=== PATIENT | female | born 1940 | race Caucasian/White ===

== ENCOUNTER 2017-01-08 16:53 | Inpatient (IN) | payer MEDICARE, MEDICAID ==
[~2017-01-08] VITALS: Ht 157.5 cm; Wt 54.1 kg
--- NOTE | 2017-01-08 17:10 | NUR ---
PATIENT IS AWAKE AND ALERT. PLACED ON A MONITOR.
[2017-01-08] MEDS ORDERED: BENZ1LOZ58 MM (18:05)
[2017-01-08] MEDS ORDERED: SERT100T PO (18:05)
[2017-01-08] MEDS ORDERED: ACET-2154 PO ×2 (18:05)
[2017-01-08] MEDS ORDERED: ACET-73 PO (18:05)
[2017-01-08] MEDS ORDERED: FURO40TA5 PO (18:05)
[2017-01-08] MEDS ORDERED: OMEP20TA5 PO (18:05)
[2017-01-08] MEDS ORDERED: MEMA10TA PO (18:05)
[2017-01-08] MEDS ORDERED: DONE5TAB7 PO (18:05)
[2017-01-08] MEDS ORDERED: LEVO75TA7 PO (18:05)
[2017-01-08] MEDS ORDERED: CLON0.252 PO (18:05)
[2017-01-08] MEDS ORDERED: POTA10TA10 PO (18:05)
[2017-01-08] MEDS ORDERED: FERR325T28 PO (18:05)
[2017-01-08] MEDS ORDERED: CHOL400C8 PO (18:06)
[2017-01-08 18:09] LABS: BASOPHILS % (AUTO) 0.3 % (0.0-2.0); EOSINOPHILS # (AUTO) 0.2 K/uL (0.0-0.7); EOSINOPHILS % (AUTO) 1.5 % (0.0-7.0); HEMATOCRIT 39.5 % (37-47); LYMPHOCYTES # (AUTO) 1.2 K/UL (0.8-4.8); LYMPHOCYTES % (AUTO) 11.7 % (20.5-51.5); MEAN CORPUSCULAR HEMOGLOBIN 30.6 UUG (27.0-31.0); MEAN CORPUSCULAR HGB CONC 33 g/dL (32.0-37.0); MONOCYTES # (AUTO) 0.8 K/UL (0.1-1.30); NEUTROPHILS # (AUTO) 7.9 K/UL (1.8-8.9); NEUTROPHILS % (AUTO) 78.5 % (38.5-71.5); PLATELET COUNT (AUTO) 155 K/UL (150-450); RED BLOOD CELL COUNT(AUTO) 4.24 MIL/UL (4.2-5.4); WHITE BLOOD COUNT (AUTO) 10.1 K/UL (4.0-11.2)
[2017-01-08 18:19] LABS: CARBON DIOXIDE 27 mmol/L (21-32); CHLORIDE 103 mmol/L (98-107); CREATININE 0.5 mg/dL (0.6-1.3); GLUCOSE 102 mg/dL (74-106); POTASSIUM 4.2 mmol/L (3.5-5.1); UREA NITROGEN, BLOOD 16 mg/dL (7-18)
--- NOTE | 2017-01-08 18:22 | NUR ---
URINE SENT TO LAB. IV PLACED, LABS PENDING. PT IS AWAKE AND ALERT WITH NO COMPLAINTS.
[2017-01-08 18:29] LABS: ALANINE AMINOTRANSFERASE 8 U/L (14-59); ALKALINE PHOSPHATASE 79 U/L (50-136); ASPARTATE AMINOTRANSFERASE 16 U/L (15-37); BILIRUBIN,DIRECT 0.1 mg/dL (0.0-0.2); BILIRUBIN,TOTAL 0.4 mg/dL (0.2-1.0); TOTAL PROTEIN, SERUM 7.6 g/dL (6.4-8.2)
[2017-01-08 19:48] LABS: *BILIRUBIN,URIN NEGATIVE (NEGATIVE); *BLOOD, URINE 1+ (NEGATIVE); *CLARITY,URINE CLEAR (CLEAR); *COLOR,URINE YELLOW (YELLOW); *KETONES,URINE NEGATIVE (NEGATIVE); *PROTEIN,URINE NEGATIVE (NEGATIVE); *UROBILINOGEN,URINE 0.2 E.U./dl (NORMAL); LEUKOCYTE ESTERASE ,URINE 3+ (NEGATIVE); NITRITE, URINE POSITIVE (NEGATIVE); UGLUCOSE NEGATIVE (NEGATIVE)
[2017-01-08 19:54] LABS: WBC,URINE 20-50 /HPF (0-3)
[2017-01-08 19:55] LABS: BACTERIA,URINE 3 /HPF (NONE SEEN); SQUAMOUS EPITHELIAL CELL,UR MODERATE /HPF (NONE SEEN)
[2017-01-08] MEDS ORDERED: CEFTRIAXONE 1 G in IV DEXTROSE 5% 50 ML IV ONE (20:00)
--- NOTE | 2017-01-08 20:30 | NUR ---
Patient pulled out IV line. Catheter intact and site benign. Pressure and 4x4 gauze applied to site. No bleeding noted.
[2017-01-08] MEDS ORDERED: CEFTRIAXONE 1 G VIAL ONE (20:31)
--- NOTE | 2017-01-08 21:09 | NUR ---
Pt. admitted to M/S, under care of Dr. Jurado. Belongs List completed
--- NOTE | 2017-01-08 21:15 | NUR ---
RECEIVED FROM ER VIA RADHA, HERED TO ROOM AND PLACED COMFORTABLY ON BED. ALERT TO SELF ONLY. SHE IS ABLE TO MAKE NEEDS KNOWN BUT SHE IS CONFUSED. UNABLE TO PROVIDE HX. BODY ASSESSMENT DONE. SKIN INTACT. SAFETY INITIATED. NEEDS ATTENDED. NO SIGNS OF ACUTE DISTRESS NOTED. WILL REVIEW MEDICATIONS ORDERED. WILL ADMINISTER MEDICATIONS ORDERED. WILL CONTINUE TO MONITOR.
[2017-01-08] MEDS ORDERED: MAGNESIUM HYDROXIDE 30 ML LIQUID UDC PO PRN (22:00)
[2017-01-08] MEDS ORDERED: ACETAMINOPHEN 325 MG TABLET PO PRN (22:00)
[2017-01-08] MEDS ORDERED: MORPHINE SULFATE 2 MG/1 ML DISP.SYRIN IV PRN (22:00)
[2017-01-08] MEDS: CEFTRIAXONE 1 G in IV DEXTROSE 5% 50 ML IV SCH (22:00)
[2017-01-08] MEDS: IV 1/2NS 1000 ML 1,000 ML IV PRN (22:18)
--- NOTE | 2017-01-08 22:44 | NUR ---
DR. YAÑEZ AT BEDSIDE.
[2017-01-09 07:11] LABS: THYROID STIMULATING HORMONE 4.334 mIU/mL (0.358-3.740)
[2017-01-09 07:15] LABS: BASOPHILS % (AUTO) 0.2 % (0.0-2.0); EOSINOPHILS # (AUTO) 0.3 K/uL (0.0-0.7); EOSINOPHILS % (AUTO) 2.8 % (0.0-7.0); HEMATOCRIT 37.2 % (37-47); HEMOGLOBIN 12.3 G/DL (12.0-16.0); LYMPHOCYTES # (AUTO) 1.6 K/UL (0.8-4.8); LYMPHOCYTES % (AUTO) 17.8 % (20.5-51.5); MEAN CORPUSCULAR HGB CONC 33 g/dL (32.0-37.0); MEAN CORPUSCULAR VOLUME 93.7 FL (81.0-99.0); MONOCYTES # (AUTO) 0.9 K/UL (0.1-1.30); MONOCYTES % (AUTO) 9.7 % (0.0-11.0); NEUTROPHILS # (AUTO) 6.2 K/UL (1.8-8.9); NEUTROPHILS % (AUTO) 69.5 % (38.5-71.5); PLATELET COUNT (AUTO) 147 K/UL (150-450); RED BLOOD CELL COUNT(AUTO) 3.97 MIL/UL (4.2-5.4); WHITE BLOOD COUNT (AUTO) 9.1 K/UL (4.0-11.2)
--- NOTE | 2017-01-09 07:25 | NUR ---
PT SLEEPING IN BED, AWAKENS TO TOUCH. PT NON VERBAL HOWEVER SHAKES HEAD YES OR NO TO MAKE NEEDS KNOWN. IN NO ACUTE DISTRESS, IV INTACT AND PATENT, INFUSING WELL. ALL SAFETY AND COMFORT MEASURES ATTENDED TO, CALL LIGHT IN REACH
--- NOTE | 2017-01-09 07:35 | NUR ---
PATIENT SLEPT INTERMITTENTLY T/O THE NIGHT. ALL SAFETY AND COMFORT MEASURES MAINTAINED T/O SHIFT. V/S AFEBRILE. NO CHANGES NOTED T/O SHIFT. ADMISSION PROTOCOL FOLLOWED.
[2017-01-09] MEDS ORDERED: CLONAZEPAM 0.5 MG TABLET PO PRN (07:45)
[2017-01-09] MEDS: SERTRALINE HCL 100 MG TABLET PO SCH (08:18)
[2017-01-09] MEDS: CHOLECALCIFEROL 400 UNITS TABLET PO SCH (08:18)
[2017-01-09] MEDS: LEVOTHYROXINE SODIUM 75 MCG TABLET PO SCH (08:18)
[2017-01-09] MEDS: FERROUS SULFATE 325 MG TABEC PO SCH (08:18)
[2017-01-09] MEDS: DONEPEZIL 5 MG TABLET PO SCH ×2 (08:18→16:27)
[2017-01-09] MEDS: PANTOPRAZOLE SODIUM 40 MG TABLET.DR PO SCH (08:18)
[2017-01-09] MEDS: MEMANTINE HCL 10 MG TABLET PO SCH ×2 (08:18→16:27)
[2017-01-09 08:19] LABS: ALANINE AMINOTRANSFERASE 10 U/L (14-59); ALKALINE PHOSPHATASE 76 U/L (50-136); ASPARTATE AMINOTRANSFERASE 14 U/L (15-37); BILIRUBIN,TOTAL 0.4 mg/dL (0.2-1.0); CARBON DIOXIDE 26 mmol/L (21-32); CHLORIDE 102 mmol/L (98-107); CHOLESTEROL 162 mg/dL (<200); CREATININE 0.5 mg/dL (0.6-1.3); GLUCOSE 78 mg/dL (74-106); HDL CHOLESTEROL 41 mg/dL (40-60); MAGNESIUM 1.8 mg/dL (1.8-2.4); PHOSPHOROUS 3.5 mg/dL (2.5-4.9); POTASSIUM 3.6 mmol/L (3.5-5.1); TOTAL PROTEIN, SERUM 7.1 g/dL (6.4-8.2); TRIGLYCERIDES 104 MG/DL (30-150); UREA NITROGEN, BLOOD 14 mg/dL (7-18)
[2017-01-09] MEDS ORDERED: CLONAZEPAM 0.25 MG PO SCH (09:00)
[2017-01-09] MEDS: IV 1/2NS 1000 ML 1,000 ML IV PRN (11:32)
[2017-01-09 11:48] VITALS: BP 119/64
[2017-01-09 15:14] VITALS: BP 98/64
--- NOTE | 2017-01-09 19:30 | NUR ---
RCVD PATIENT LAYING IN BED COMFORTABLY. NO SIGNS OF DISTRESS NOTED. ABLE TO ANSWER OPEN ENDED QUESTIONS. DVT PUMPS ON BILATERAL LEGS. ATE 25% OF HER DINNER. SAFETY INITIATED. CALL LIGHT WITHIN REACH. WILL CONTINUE TO MONITOR.
[2017-01-09 20:00] VITALS: BP 115/72
[2017-01-09] MEDS: CEFTRIAXONE 1 G in IV DEXTROSE 5% 50 ML IV SCH (21:13)
[2017-01-09] MEDS: DOCUSATE SODIUM 100 MG CAPSULE PO SCH (21:13)
[2017-01-10] MEDS: IV 1/2NS 1000 ML 1,000 ML IV PRN ×2 (02:12→14:16)
[2017-01-10 04:55] VITALS: BP 98/60
[2017-01-10] MEDS: PANTOPRAZOLE SODIUM 40 MG TABLET.DR PO SCH (06:14)
[2017-01-10] MEDS: LEVOTHYROXINE SODIUM 75 MCG TABLET PO SCH (06:14)
[2017-01-10] MEDS ORDERED: Z GUARD REMEDY PASTE 57 GM TUBE TOP PRN (06:45)
[2017-01-10 07:12] LABS: BASOPHILS % (AUTO) 0.2 % (0.0-2.0); EOSINOPHILS # (AUTO) 0.2 K/uL (0.0-0.7); EOSINOPHILS % (AUTO) 2.1 % (0.0-7.0); HEMATOCRIT 37.8 % (37-47); HEMOGLOBIN 12.5 G/DL (12.0-16.0); LYMPHOCYTES # (AUTO) 1.3 K/UL (0.8-4.8); LYMPHOCYTES % (AUTO) 14.7 % (20.5-51.5); MEAN CORPUSCULAR HEMOGLOBIN 30.7 UUG (27.0-31.0); MEAN CORPUSCULAR HGB CONC 33 g/dL (32.0-37.0); MEAN CORPUSCULAR VOLUME 92.8 FL (81.0-99.0); MONOCYTES # (AUTO) 0.8 K/UL (0.1-1.30); MONOCYTES % (AUTO) 9.6 % (0.0-11.0); NEUTROPHILS # (AUTO) 6.2 K/UL (1.8-8.9); NEUTROPHILS % (AUTO) 73.4 % (38.5-71.5); PLATELET COUNT (AUTO) 139 K/UL (150-450); RED BLOOD CELL COUNT(AUTO) 4.07 MIL/UL (4.2-5.4); WHITE BLOOD COUNT (AUTO) 8.5 K/UL (4.0-11.2)
--- NOTE | 2017-01-10 07:21 | NUR ---
PATIENT SLEPT INTERMITTENTLY T/O SHIFT. NO SIGNS OF DISTRESS NOTED. ALL MEDICATIONS GIVEN ORDERED. TURN AND REPOSITIONED Q2H. REDNESS IN SACRAL AREA. DOCUMENTED AND PHOTOS DONE. LEFT EYE REDNESS AND CRUSTING. ENDORSED TO AM NURSE. ALL NEEDS MET. CALL LIGHT WITHIN REACH.
[2017-01-10 07:29] LABS: ALANINE AMINOTRANSFERASE 8 U/L (14-59); ALKALINE PHOSPHATASE 79 U/L (50-136); ASPARTATE AMINOTRANSFERASE 13 U/L (15-37); BILIRUBIN,TOTAL 0.3 mg/dL (0.2-1.0); CARBON DIOXIDE 28 mmol/L (21-32); CHLORIDE 102 mmol/L (98-107); CREATININE 0.5 mg/dL (0.6-1.3); GLUCOSE 77 mg/dL (74-106); PHOSPHOROUS 3.2 mg/dL (2.5-4.9); POTASSIUM 3.3 mmol/L (3.5-5.1); UREA NITROGEN, BLOOD 8 mg/dL (7-18)
[2017-01-10 07:56] LABS: MAGNESIUM 1.7 mg/dL (1.8-2.4)
--- NOTE | 2017-01-10 08:50 | NUR ---
RECEIVED REPORT FROM CHARGE NURSE. PATIENT IN BED, SAFETY CHECK, BED IN LOW POSITION, SIDE RAILS UPX2.
[2017-01-10] MEDS: SERTRALINE HCL 100 MG TABLET PO SCH (09:24)
[2017-01-10] MEDS: DONEPEZIL 5 MG TABLET PO SCH ×2 (09:24→17:18)
[2017-01-10] MEDS: MEMANTINE HCL 10 MG TABLET PO SCH ×2 (09:24→17:18)
[2017-01-10] MEDS: FERROUS SULFATE 325 MG TABEC PO SCH (09:24)
[2017-01-10] MEDS: CHOLECALCIFEROL 400 UNITS TABLET PO SCH (09:24)
[2017-01-10] MEDS ORDERED: POTASSIUM CHLORIDE 20 MEQ TAB.PRT.SR PO ONE (11:30)
[2017-01-10 11:50] VITALS: BP 133/62
[2017-01-10 15:31] VITALS: BP 122/73
[2017-01-10] MEDS: MAGNESIUM SULFATE/D5W 100 ML IV SCH ×2 (15:53→15:54)
--- NOTE | 2017-01-10 18:26 | NUR ---
PATIENT SLEPT MOST OF SHIFT, NO SOB NO CHEST PAIN, KEPT CLEAN AND COMFORTABLE. PATIENT IS EATING VERY LITTLE DURING MEALS.
[2017-01-10 19:00] VITALS: BP 106/56
--- NOTE | 2017-01-10 19:35 | NUR ---
PT RECEIVED IN BED, AWAKE AND COMFORTABLE. A/OX2. ABLE TO MAKE NEEDS KNOWN. V/S STABLE. NO SIGNS OF ACUTE DISTRESS. NO COMPLAINTS OF PAIN AT THIS TIME. IVF INFUSING. SAFETY MEASURES IMPLEMENTED. FALL PRECAUTIONS IN PLACE. CALL LIGHT WITHIN REACH. WILL CONTINUE TO MONITOR.
[2017-01-10] MEDS: DOCUSATE SODIUM 100 MG CAPSULE PO SCH (21:10)
[2017-01-10] MEDS: CEFTRIAXONE 1 G in IV DEXTROSE 5% 50 ML IV SCH (21:11)
[2017-01-11 04:00] VITALS: BP 112/59
--- NOTE | 2017-01-11 06:00 | NUR ---
END OF SHIFT NOTES. PT SLEPT WELL THROUGHOUT SHIFT. V/S STABLE. NO SIGNS OF ACUTE DISTRESS. NO COMPLAINTS OF PAIN. IVF INFUSING. NEEDS ATTENDED. SAFETY MAINTAINED. CALL LIGHT WITHIN REACH.
[2017-01-11 07:10] LABS: HEMOGLOBIN 12.8 G/DL (12.0-16.0); RED BLOOD CELL COUNT(AUTO) 4.11 MIL/UL (4.2-5.4)
[2017-01-11 07:11] LABS: BASOPHILS % (AUTO) 0.1 % (0.0-2.0); EOSINOPHILS # (AUTO) 0.2 K/uL (0.0-0.7); EOSINOPHILS % (AUTO) 2.2 % (0.0-7.0); HEMATOCRIT 37.9 % (37-47); LYMPHOCYTES # (AUTO) 1.2 K/UL (0.8-4.8); LYMPHOCYTES % (AUTO) 14.8 % (20.5-51.5); MEAN CORPUSCULAR HEMOGLOBIN 31.2 UUG (27.0-31.0); MEAN CORPUSCULAR HGB CONC 34 g/dL (32.0-37.0); MEAN CORPUSCULAR VOLUME 92.2 FL (81.0-99.0); MONOCYTES # (AUTO) 0.7 K/UL (0.1-1.30); MONOCYTES % (AUTO) 8.8 % (0.0-11.0); NEUTROPHILS # (AUTO) 5.9 K/UL (1.8-8.9); NEUTROPHILS % (AUTO) 74.1 % (38.5-71.5); PLATELET COUNT (AUTO) 152 K/UL (150-450)
[2017-01-11] MEDS: LEVOTHYROXINE SODIUM 75 MCG TABLET PO SCH (07:12)
[2017-01-11 07:13] LABS: CARBON DIOXIDE 30 mmol/L (21-32); CHLORIDE 102 mmol/L (98-107); CREATININE 0.4 mg/dL (0.6-1.3); GLUCOSE 84 mg/dL (74-106); POTASSIUM 3.9 mmol/L (3.5-5.1); UREA NITROGEN, BLOOD 7 mg/dL (7-18)
[2017-01-11] MEDS: PANTOPRAZOLE SODIUM 40 MG TABLET.DR PO SCH (07:13)
[2017-01-11] MEDS: IV 1/2NS 1000 ML 1,000 ML IV PRN (07:57)
[2017-01-11] MEDS: DONEPEZIL 5 MG TABLET PO SCH ×2 (08:30→17:17)
[2017-01-11] MEDS: FERROUS SULFATE 325 MG TABEC PO SCH (08:30)
[2017-01-11] MEDS: CHOLECALCIFEROL 400 UNITS TABLET PO SCH (08:30)
[2017-01-11] MEDS: SERTRALINE HCL 100 MG TABLET PO SCH (08:30)
[2017-01-11] MEDS: MEMANTINE HCL 10 MG TABLET PO SCH ×2 (08:30→17:17)
[2017-01-11 11:28] VITALS: BP 134/73
[2017-01-11] MEDS ORDERED: ACID1TAB4 PO (14:07)
[2017-01-11] MEDS ORDERED: ACET325T53 PO (14:07)
[2017-01-11] MEDS ORDERED: MENT71OI TOP (14:07)
[2017-01-11] MEDS ORDERED: FURO-152 PO (14:07)
[2017-01-11] MEDS ORDERED: DOCU100C36 PO (14:07)
[2017-01-11] MEDS ORDERED: SULF1TAB48 PO (14:07)
[2017-01-11 15:09] VITALS: BP_SYST 108; BP_SYST 134; BP_DIAS 62; BP_DIAS 73
--- NOTE | 2017-01-11 17:20 | NUR ---
The patient will be discharged today back to [facility] [ ; [address] [place] [address]] via [facility]. Left a message to her daughter, Maru [ ], about her discharge. Camelia from [facility] confirmed that they will re-admit the patient today and that she is their long-term resident. Her RN, Minal, is aware of her discharge plan and will call the facility for the report.
--- NOTE | 2017-01-11 18:00 | NUR ---
PATIENT WAS [facility]SP[facility]. PATIENTS VITALS WNL, NO EVIDENCE OF DISTRESS NOTED.
== END 2017-01-11 18:30 | DRG 871 ==
LOC: ER 17:02 → MED 21:03
PROVIDERS: ADMIT Internal Medicine; ATTEND Internal Medicine
DX: A41.9 Sepsis, unspecified organism (principal); G92 Toxic encephalopathy; E43 Unspecified severe protein-calorie malnutrition; N39.0 Urinary tract infection, site not specified; D68.59 Other primary thrombophilia; R65.20 Severe sepsis without septic shock; B96.20 Unspecified Escherichia coli [E. coli] as the cause of diseases classified elsewhere; Z66 Do not resuscitate; K21.9 Gastro-esophageal reflux disease without esophagitis; Z86.718 Personal history of other venous thrombosis and embolism; Z88.0 Allergy status to penicillin; Z88.6 Allergy status to analgesic agent; Z88.1 Allergy status to other antibiotic agents; Z91.010 Allergy to peanuts; Z86.711 Personal history of pulmonary embolism; Z68.21 Body mass index [BMI] 21.0-21.9, adult; Z74.09 Other reduced mobility; F03.90 Unspecified dementia, unspecified severity, without behavioral disturbance, psychotic disturbance, mood disturbance, and anxiety; E03.9 Hypothyroidism, unspecified; E87.6 Hypokalemia; E83.42 Hypomagnesemia; F32.9 Major depressive disorder, single episode, unspecified; F41.9 Anxiety disorder, unspecified; K44.9 Diaphragmatic hernia without obstruction or gangrene; Z87.891 Personal history of nicotine dependence; M81.0 Age-related osteoporosis without current pathological fracture; I51.89 Other ill-defined heart diseases; I70.0 Atherosclerosis of aorta
CPT/HCPCS: 36415; 70030-TC; 70450; 71010; 83605; 83735; 84100; 84443; 85025; 85730; 87040; 87077; 87086; 92610; 93005; 93307; 97161; J0696; J3475; J3490; J7060

== ENCOUNTER 2017-03-28 19:44 | Inpatient (IN) | payer MEDICARE, MEDICAID ==
[~2017-03-28] VITALS: Ht 165.1 cm; Wt 55.0 kg
[~2017-03-28 19:44] MED LIST: ACET325T53 PO; ACID1TAB4 PO; CHOL400C8 PO; CLON0.252 PO; DOCU100C36 PO; DONE5TAB7 PO; FERR325T28 PO; FURO-152 PO; LEVO75TA7 PO; MEMA10TA PO; MENT71OI TOP; OMEP20TA5 PO; SERT100T PO; SULF1TAB48 PO
[2017-03-28] MEDS ORDERED: ATOR10TA PO (20:01)
[2017-03-28] MEDS ORDERED: CHOL10002 PO (20:01)
[2017-03-28 20:44] LABS: BASOPHILS % (AUTO) 0.2 % (0.0-2.0); EOSINOPHILS # (AUTO) 0.1 K/uL (0.0-0.7); HEMATOCRIT 37.4 % (37-47); HEMOGLOBIN 12.6 G/DL (12.0-16.0); LYMPHOCYTES # (AUTO) 1.6 K/UL (0.8-4.8); LYMPHOCYTES % (AUTO) 15.2 % (20.5-51.5); MEAN CORPUSCULAR HEMOGLOBIN 31.5 UUG (27.0-31.0); MEAN CORPUSCULAR HGB CONC 34 g/dL (32.0-37.0); MEAN CORPUSCULAR VOLUME 93.6 FL (81.0-99.0); MONOCYTES % (AUTO) 9.4 % (0.0-11.0); NEUTROPHILS # (AUTO) 7.9 K/UL (1.8-8.9); NEUTROPHILS % (AUTO) 74.2 % (38.5-71.5); PLATELET COUNT (AUTO) 186 K/UL (150-450); RED BLOOD CELL COUNT(AUTO) 3.99 MIL/UL (4.2-5.4); WHITE BLOOD COUNT (AUTO) 10.6 K/UL (4.0-11.2)
[2017-03-28 20:49] LABS: CARBON DIOXIDE 33 mmol/L (21-32); CHLORIDE 103 mmol/L (98-107); CREATININE 0.8 mg/dL (0.6-1.3); GLUCOSE 132 mg/dL (74-106); POTASSIUM 3.4 mmol/L (3.5-5.1); UREA NITROGEN, BLOOD 20 mg/dL (7-18)
[2017-03-28 20:55] LABS: ALANINE AMINOTRANSFERASE 17 U/L (14-59); ALKALINE PHOSPHATASE 90 U/L (50-136); ASPARTATE AMINOTRANSFERASE 16 U/L (15-37); BILIRUBIN,DIRECT 0.1 mg/dL (0.0-0.2); BILIRUBIN,TOTAL 0.2 mg/dL (0.2-1.0); TOTAL PROTEIN, SERUM 7.5 g/dL (6.4-8.2)
[2017-03-28 21:16] LABS: *BILIRUBIN,URIN NEGATIVE (NEGATIVE); *BLOOD, URINE NEGATIVE (NEGATIVE); *COLOR,URINE YELLOW (YELLOW); *KETONES,URINE NEGATIVE (NEGATIVE); *PROTEIN,URINE 1+ (NEGATIVE); LEUKOCYTE ESTERASE ,URINE 1+ (NEGATIVE); NITRITE, URINE POSITIVE (NEGATIVE); UGLUCOSE NEGATIVE (NEGATIVE)
[2017-03-28 21:24] LABS: *CLARITY,URINE HAZY (CLEAR)
[2017-03-28 21:25] LABS: BACTERIA,URINE MANY /HPF (NONE SEEN); MUCUS,URINE MANY /LPF (0-FEW); SQUAMOUS EPITHELIAL CELL,UR FEW /HPF (NONE SEEN); URINE AMORPHOUS PHOSPHATES FEW /HPF; WBC,URINE 20-50 /HPF (0-3)
[2017-03-28 22:10] VITALS: BP 109/59
[2017-03-28] MEDS ORDERED: ACID1TAB4 PO (22:39)
[2017-03-29 05:11] VITALS: BP 123/57
[2017-03-29 06:24] LABS: BASOPHILS % (AUTO) 0.1 % (0.0-2.0); EOSINOPHILS # (AUTO) 0.1 K/uL (0.0-0.7); EOSINOPHILS % (AUTO) 1.2 % (0.0-7.0); HEMATOCRIT 34.9 % (37-47); HEMOGLOBIN 11.8 G/DL (12.0-16.0); LYMPHOCYTES # (AUTO) 1.7 K/UL (0.8-4.8); LYMPHOCYTES % (AUTO) 18.3 % (20.5-51.5); MEAN CORPUSCULAR HEMOGLOBIN 31.6 UUG (27.0-31.0); MEAN CORPUSCULAR HGB CONC 34 g/dL (32.0-37.0); MEAN CORPUSCULAR VOLUME 93.5 FL (81.0-99.0); MONOCYTES # (AUTO) 0.8 K/UL (0.1-1.30); MONOCYTES % (AUTO) 8.5 % (0.0-11.0); NEUTROPHILS # (AUTO) 6.5 K/UL (1.8-8.9); NEUTROPHILS % (AUTO) 71.9 % (38.5-71.5); PLATELET COUNT (AUTO) 176 K/UL (150-450); RED BLOOD CELL COUNT(AUTO) 3.73 MIL/UL (4.2-5.4); WHITE BLOOD COUNT (AUTO) 9.1 K/UL (4.0-11.2)
[2017-03-29 06:36] LABS: IRON, SERUM 75 ug/dL (50-175)
[2017-03-29 06:56] LABS: ALANINE AMINOTRANSFERASE 19 U/L (14-59); ALKALINE PHOSPHATASE 85 U/L (50-136); ASPARTATE AMINOTRANSFERASE 20 U/L (15-37); BILIRUBIN,TOTAL 0.3 mg/dL (0.2-1.0); CARBON DIOXIDE 28 mmol/L (21-32); CHLORIDE 105 mmol/L (98-107); CHOLESTEROL 183 mg/dL (<200); CREATININE 0.5 mg/dL (0.6-1.3); GLUCOSE 84 mg/dL (74-106); HDL CHOLESTEROL 46 mg/dL (40-60); MAGNESIUM 1.8 mg/dL (1.8-2.4); TOTAL PROTEIN, SERUM 7.2 g/dL (6.4-8.2); TRIGLYCERIDES 101 MG/DL (30-150); UREA NITROGEN, BLOOD 15 mg/dL (7-18)
[2017-03-29 10:38] VITALS: BP 96/71
[2017-03-29 15:34] VITALS: BP 101/71
[2017-03-29 20:00] VITALS: BP 107/59
[2017-03-30 04:31] VITALS: BP 104/56
[2017-03-30 07:23] LABS: BASOPHILS % (AUTO) 0.2 % (0.0-2.0); EOSINOPHILS # (AUTO) 0.1 K/uL (0.0-0.7); EOSINOPHILS % (AUTO) 0.8 % (0.0-7.0); HEMATOCRIT 36.2 % (37-47); LYMPHOCYTES # (AUTO) 1.4 K/UL (0.8-4.8); LYMPHOCYTES % (AUTO) 14.5 % (20.5-51.5); MEAN CORPUSCULAR HEMOGLOBIN 31.4 UUG (27.0-31.0); MEAN CORPUSCULAR HGB CONC 33 g/dL (32.0-37.0); MEAN CORPUSCULAR VOLUME 94.9 FL (81.0-99.0); MONOCYTES # (AUTO) 0.7 K/UL (0.1-1.30); MONOCYTES % (AUTO) 7.4 % (0.0-11.0); NEUTROPHILS # (AUTO) 7.6 K/UL (1.8-8.9); NEUTROPHILS % (AUTO) 77.1 % (38.5-71.5); PLATELET COUNT (AUTO) 167 K/UL (150-450); RED BLOOD CELL COUNT(AUTO) 3.82 MIL/UL (4.2-5.4); WHITE BLOOD COUNT (AUTO) 9.8 K/UL (4.0-11.2)
[2017-03-30 07:58] LABS: ALANINE AMINOTRANSFERASE 13 U/L (14-59); ALKALINE PHOSPHATASE 82 U/L (50-136); ASPARTATE AMINOTRANSFERASE 17 U/L (15-37); BILIRUBIN,TOTAL 0.4 mg/dL (0.2-1.0); CARBON DIOXIDE 27 mmol/L (21-32); CHLORIDE 104 mmol/L (98-107); CREATININE 0.6 mg/dL (0.6-1.3); GLUCOSE 83 mg/dL (74-106); MAGNESIUM 1.8 mg/dL (1.8-2.4); PHOSPHOROUS 3.4 mg/dL (2.5-4.9); POTASSIUM 4.2 mmol/L (3.5-5.1); TOTAL PROTEIN, SERUM 7.1 g/dL (6.4-8.2); UREA NITROGEN, BLOOD 8 mg/dL (7-18)
[2017-03-30 11:03] VITALS: BP 99/48
[2017-03-30 15:21] VITALS: BP 100/54
[2017-03-30 20:00] VITALS: BP 101/57
[2017-03-30 20:53] VITALS: BP 101/57
[2017-03-31 04:00] VITALS: BP_SYST 114; BP_DIAS 54; BP_DIAS 59
[2017-03-31 07:19] LABS: BASOPHILS % (AUTO) 0.2 % (0.0-2.0); EOSINOPHILS # (AUTO) 0.1 K/uL (0.0-0.7); EOSINOPHILS % (AUTO) 1.3 % (0.0-7.0); HEMATOCRIT 35.1 % (37-47); HEMOGLOBIN 11.9 G/DL (12.0-16.0); LYMPHOCYTES # (AUTO) 1.4 K/UL (0.8-4.8); LYMPHOCYTES % (AUTO) 17.4 % (20.5-51.5); MEAN CORPUSCULAR HGB CONC 34 g/dL (32.0-37.0); MEAN CORPUSCULAR VOLUME 94.2 FL (81.0-99.0); MONOCYTES # (AUTO) 0.7 K/UL (0.1-1.30); MONOCYTES % (AUTO) 8.2 % (0.0-11.0); NEUTROPHILS # (AUTO) 5.9 K/UL (1.8-8.9); NEUTROPHILS % (AUTO) 72.9 % (38.5-71.5); PLATELET COUNT (AUTO) 148 K/UL (150-450); RED BLOOD CELL COUNT(AUTO) 3.73 MIL/UL (4.2-5.4); WHITE BLOOD COUNT (AUTO) 8.1 K/UL (4.0-11.2)
[2017-03-31 07:43] LABS: ALANINE AMINOTRANSFERASE 16 U/L (14-59); ALKALINE PHOSPHATASE 90 U/L (50-136); ASPARTATE AMINOTRANSFERASE 19 U/L (15-37); BILIRUBIN,TOTAL 0.4 mg/dL (0.2-1.0); CARBON DIOXIDE 29 mmol/L (21-32); CHLORIDE 101 mmol/L (98-107); CREATININE 0.6 mg/dL (0.6-1.3); GLUCOSE 87 mg/dL (74-106); MAGNESIUM 1.6 mg/dL (1.8-2.4); PHOSPHOROUS 3.5 mg/dL (2.5-4.9); POTASSIUM 4.2 mmol/L (3.5-5.1); TOTAL PROTEIN, SERUM 7.2 g/dL (6.4-8.2); UREA NITROGEN, BLOOD 8 mg/dL (7-18)
[2017-03-31 11:26] VITALS: BP 111/50
[2017-03-31] MEDS ORDERED: ATOR10TA PO (14:50)
[2017-03-31] MEDS ORDERED: SERT100T12 PO (14:50)
[2017-03-31] MEDS ORDERED: FERR325T28 PO (14:50)
[2017-03-31] MEDS ORDERED: PANT40TA2 PO (14:50)
[2017-03-31] MEDS ORDERED: CEPH500C2 PO (14:50)
[2017-03-31] MEDS ORDERED: FURO20TA4 PO (14:50)
[2017-03-31] MEDS ORDERED: MEMA10TA PO (14:50)
[2017-03-31] MEDS ORDERED: ACET325T53 PO (14:50)
[2017-03-31] MEDS ORDERED: ACID1TAB4 PO (14:50)
[2017-03-31] MEDS ORDERED: CHOL10002 PO (14:50)
[2017-03-31] MEDS ORDERED: LEVO75TA7 PO (14:50)
[2017-03-31] MEDS ORDERED: DONE5TAB7 PO (14:50)
[2017-03-31 15:38] VITALS: BP 104/64
== END 2017-03-31 18:00 | DRG 689 ==
LOC: ER 19:45 → MED 21:43
PROVIDERS: ADMIT Internal Medicine; ATTEND Internal Medicine
DX: N39.0 Urinary tract infection, site not specified (principal); G93.40 Encephalopathy, unspecified; E44.0 Moderate protein-calorie malnutrition; K52.1 Toxic gastroenteritis and colitis; F03.90 Unspecified dementia, unspecified severity, without behavioral disturbance, psychotic disturbance, mood disturbance, and anxiety; D69.6 Thrombocytopenia, unspecified; E83.42 Hypomagnesemia; T47.4X1A Poisoning by other laxatives, accidental (unintentional), initial encounter; E87.6 Hypokalemia; R62.7 Adult failure to thrive; B96.4 Proteus (mirabilis) (morganii) as the cause of diseases classified elsewhere; Z16.23 Resistance to quinolones and fluoroquinolones; Z68.20 Body mass index [BMI] 20.0-20.9, adult; E78.5 Hyperlipidemia, unspecified; K21.9 Gastro-esophageal reflux disease without esophagitis; K44.9 Diaphragmatic hernia without obstruction or gangrene; Z86.718 Personal history of other venous thrombosis and embolism; Z86.711 Personal history of pulmonary embolism; M81.0 Age-related osteoporosis without current pathological fracture; Z87.440 Personal history of urinary (tract) infections; Z88.0 Allergy status to penicillin; Z88.6 Allergy status to analgesic agent; Z88.1 Allergy status to other antibiotic agents; Z91.010 Allergy to peanuts; F41.8 Other specified anxiety disorders; E03.9 Hypothyroidism, unspecified; H57.02 Anisocoria; I51.9 Heart disease, unspecified; D64.9 Anemia, unspecified; R73.9 Hyperglycemia, unspecified; Y92.129 Unspecified place in nursing home as the place of occurrence of the external cause; Z79.899 Other long term (current) drug therapy; J32.8 Other chronic sinusitis; I67.2 Cerebral atherosclerosis
CPT/HCPCS: 36415; 70450; 71010; 83550; 83735; 84100; 84443; 85025; 87040; 87077; 87086; A4663; J0690; J0696; J2185; J3475; J3480; J3490; J7060

== ENCOUNTER 2017-09-11 14:56 | Inpatient (IN) | payer MEDICARE, MEDICAID ==
[~2017-09-11] VITALS: Ht 167.6 cm; Wt 53.5 kg
[~2017-09-11 14:56] MED LIST changes: +ATOR10TA PO; +CEPH500C2 PO; +CHOL10002 PO; -CHOL400C8 PO; -CLON0.252 PO; -DOCU100C36 PO; -FURO-152 PO; +FURO20TA4 PO; -MENT71OI TOP; -OMEP20TA5 PO; +PANT40TA2 PO; -SERT100T PO; +SERT100T12 PO; -SULF1TAB48 PO
[2017-09-11] MEDS ORDERED: HALOPERIDOL LACTATE 5 MG/1 ML VIAL ONE (15:14)
[2017-09-11] MEDS ORDERED: LORAZEPAM 2 MG/1 ML VIAL IM ONE (15:15)
[2017-09-11] MEDS ORDERED: LORAZEPAM 2 MG/1 ML VIAL ONE (15:15)
[2017-09-11] MEDS ORDERED: HALOPERIDOL LACTATE 5 MG/1 ML VIAL IM ONE (15:15)
[2017-09-11 15:52] LABS: BASOPHILS % (AUTO) 0.2 % (0.0-2.0); EOSINOPHILS # (AUTO) 0.1 K/uL (0.0-0.7); EOSINOPHILS % (AUTO) 0.7 % (0.0-7.0); HEMATOCRIT 36.7 % (31.2-41.9); HEMOGLOBIN 12.2 g/dL (10.9-14.3); LYMPHOCYTES # (AUTO) 1.2 K/uL (20.0-40.0); LYMPHOCYTES % (AUTO) 13.8 % (20.5-51.5); MEAN CORPUSCULAR HEMOGLOBIN 31.5 uug (24.7-32.8); MEAN CORPUSCULAR HGB CONC 33 g/dL (32.3-35.6); MEAN CORPUSCULAR VOLUME 94.6 fL (75.5-95.3); MONOCYTES # (AUTO) 0.8 K/uL (2.0-10.0); MONOCYTES % (AUTO) 9.5 % (0.0-11.0); NEUTROPHILS # (AUTO) 6.5 K/uL (1.8-8.9); NEUTROPHILS % (AUTO) 75.8 % (38.5-71.5); PLATELET COUNT (AUTO) 139 K/uL (179-408); RED BLOOD CELL COUNT(AUTO) 3.87 MIL/uL (3.63-4.92); WHITE BLOOD COUNT (AUTO) 8.5 K/uL (3.8-11.8)
[2017-09-11 15:54] LABS: CARBON DIOXIDE 30 mmol/L (21-32); CHLORIDE 106 mmol/L (98-107); CREATININE 0.8 mg/dL (0.6-1.3); GLUCOSE 111 mg/dL (74-106); POTASSIUM 3.3 mmol/L (3.5-5.1); UREA NITROGEN, BLOOD 20 mg/dL (7-18)
[2017-09-11 16:09] LABS: ETHANOL < 3 MG/DL (0-0)
[2017-09-11 16:10] LABS: ACETAMINOPHEN < 2.0 ug/mL (10-30); ALANINE AMINOTRANSFERASE 18 U/L (14-59); ALKALINE PHOSPHATASE 119 U/L (50-136); ASPARTATE AMINOTRANSFERASE 26 U/L (15-37); BILIRUBIN,DIRECT 0.1 mg/dL (0.0-0.2); BILIRUBIN,TOTAL 0.3 mg/dL (0.2-1.0); TOTAL PROTEIN, SERUM 7.4 g/dL (6.4-8.2)
[2017-09-11 16:55] LABS: *BILIRUBIN,URIN NEGATIVE (NEGATIVE); *BLOOD, URINE NEGATIVE (NEGATIVE); *CLARITY,URINE CLOUDY (CLEAR); *COLOR,URINE YELLOW (YELLOW); *KETONES,URINE TRACE (NEGATIVE); *PROTEIN,URINE NEGATIVE (NEGATIVE); *UROBILINOGEN,URINE 0.2 E.U./dl (NORMAL); LEUKOCYTE ESTERASE ,URINE TRACE (NEGATIVE); NITRITE, URINE POSITIVE (NEGATIVE); UGLUCOSE NEGATIVE (NEGATIVE)
[2017-09-11 17:07] LABS: BACTERIA,URINE MANY /HPF (NONE SEEN); SQUAMOUS EPITHELIAL CELL,UR FEW /HPF (NONE SEEN)
[2017-09-11 17:14] LABS: *AMPHETAMINE, URINE NEGATIVE (NEGATIVE); *BARBITURATE, URINE NEGATIVE (NEGATIVE); *CANNABINOID, URINE NEGATIVE (NEGATIVE); *COCCAINE, URINE NEGATIVE (NEGATIVE); *OPIATE, URINE NEGATIVE (NEGATIVE); *PHENCYCLIDINE SCREEN,URINE NEGATIVE (NEGATIVE)
[2017-09-11] MEDS ORDERED: LEVOFLOXACIN 750 MG TABLET PO ONE (18:15)
[2017-09-11] MEDS ORDERED: LEVOFLOXACIN 750 MG TABLET ONE (18:16)
[2017-09-11 21:00] VITALS: BP 114/58
[2017-09-11] MEDS ORDERED: ACETAMINOPHEN 325 MG TABLET PO PRN (21:15)
[2017-09-11] MEDS ORDERED: LORAZEPAM 1 MG TABLET PO PRN (21:15)
[2017-09-11] MEDS ORDERED: TEMAZEPAM 7.5 MG CAPSULE PO PRN (21:15)
[2017-09-11] MEDS ORDERED: QUETIAPINE FUMARATE 25 MG TABLET PO PRN (21:45)
[2017-09-11] MEDS ORDERED: ZOLPIDEM 5 MG TABLET PO PRN (21:45)
[2017-09-12] MEDS ORDERED: ACET325T53 PO (10:56)
[2017-09-12] MEDS ORDERED: CHOL10005 PO (10:57)
[2017-09-12] MEDS ORDERED: FURO20TA4 PO (10:58)
[2017-09-12] MEDS ORDERED: LEVO75TA7 PO (10:59)
[2017-09-12] MEDS ORDERED: ATOR10TA PO (10:59)
[2017-09-12] MEDS ORDERED: MEMA10TA PO (11:00)
[2017-09-12] MEDS ORDERED: SERT100T PO (11:00)
[2017-09-12] MEDS ORDERED: DONE5TAB7 PO (11:01)
[2017-09-12 12:41] VITALS: BP 111/54
[2017-09-12 16:00] VITALS: BP 125/70
[2017-09-12] MEDS ORDERED: POTASSIUM CHLORIDE 10 MEQ TAB.PRT.SR PO ONE (19:00)
[2017-09-12 20:00] VITALS: BP 121/55
[2017-09-12] MEDS ORDERED: POTASSIUM CHLORIDE 20 MEQ POWDER PACKET PO ONE (20:15)
[2017-09-12] MEDS: MEMANTINE HCL 5 MG TABLET PO SCH (21:00)
[2017-09-12] MEDS: QUETIAPINE FUMARATE 25 MG TABLET PO SCH (21:00)
[2017-09-13] MEDS: CHOLECALCIFEROL 1,000 UNIT TABLET PO SCH (08:26)
[2017-09-13] MEDS: MEMANTINE HCL 5 MG TABLET PO SCH ×2 (08:26→20:13)
[2017-09-13] MEDS ORDERED: LEVOTHYROXINE SODIUM 75 MCG TABLET PO SCH (09:00)
[2017-09-13 15:34] VITALS: BP 117/49
[2017-09-13] MEDS: QUETIAPINE FUMARATE 25 MG TABLET PO SCH (20:13)
[2017-09-13] MEDS: ATORVASTATIN 10 MG TABLET PO SCH (20:13)
[2017-09-14] MEDS: LEVOTHYROXINE SODIUM 75 MCG TABLET PO SCH (07:22)
[2017-09-14] MEDS: CEFTRIAXONE 1 G VIAL IM SCH (08:39)
[2017-09-14] MEDS: CHOLECALCIFEROL 1,000 UNIT TABLET PO SCH (08:50)
[2017-09-14] MEDS: MEMANTINE HCL 5 MG TABLET PO SCH ×2 (08:50→21:00)
[2017-09-14] MEDS: QUETIAPINE FUMARATE 25 MG TABLET PO SCH ×2 (08:50→21:00)
[2017-09-14] MEDS: OXCARBAZEPINE 150 MG TABLET PO SCH ×2 (08:50→17:00)
[2017-09-14] MEDS: FUROSEMIDE 20 MG TABLET PO SCH (08:50)
[2017-09-14] MEDS: ATORVASTATIN 10 MG TABLET PO SCH (21:00)
[2017-09-15] MEDS: LEVOTHYROXINE SODIUM 75 MCG TABLET PO SCH (06:59)
[2017-09-15] MEDS: OXCARBAZEPINE 150 MG TABLET PO SCH ×2 (08:33→16:32)
[2017-09-15] MEDS: MEMANTINE HCL 5 MG TABLET PO SCH ×2 (08:33→21:00)
[2017-09-15] MEDS: QUETIAPINE FUMARATE 25 MG TABLET PO SCH ×2 (08:33→21:00)
[2017-09-15] MEDS: CHOLECALCIFEROL 1,000 UNIT TABLET PO SCH (08:33)
[2017-09-15] MEDS: CEFTRIAXONE 1 G VIAL IM SCH (08:33)
[2017-09-15] MEDS ORDERED: Z GUARD REMEDY PASTE 57 GM TUBE TOP PRN (12:30)
[2017-09-15] MEDS: ATORVASTATIN 10 MG TABLET PO SCH (21:00)
[2017-09-15] MEDS: MIRTAZAPINE 15 MG TABLET PO SCH (21:00)
[2017-09-15] MEDS: Z GUARD REMEDY PASTE 57 GM TUBE TOP SCH (21:00)
[2017-09-16] MEDS: LEVOTHYROXINE SODIUM 75 MCG TABLET PO SCH (07:00)
[2017-09-16] MEDS: MEMANTINE HCL 5 MG TABLET PO SCH ×2 (08:21→21:00)
[2017-09-16] MEDS: CEFTRIAXONE 1 G VIAL IM SCH (08:21)
[2017-09-16] MEDS: CHOLECALCIFEROL 1,000 UNIT TABLET PO SCH (08:21)
[2017-09-16] MEDS: QUETIAPINE FUMARATE 25 MG TABLET PO SCH ×2 (08:21→21:00)
[2017-09-16] MEDS: FUROSEMIDE 20 MG TABLET PO SCH (08:21)
[2017-09-16] MEDS: OXCARBAZEPINE 150 MG TABLET PO SCH ×2 (08:21→16:35)
[2017-09-16] MEDS: Z GUARD REMEDY PASTE 57 GM TUBE TOP SCH ×2 (08:22→21:00)
[2017-09-16 16:01] VITALS: BP 94/52
[2017-09-16] MEDS: ATORVASTATIN 10 MG TABLET PO SCH (21:00)
[2017-09-16] MEDS: MIRTAZAPINE 15 MG TABLET PO SCH (21:00)
[2017-09-17] MEDS: LEVOTHYROXINE SODIUM 75 MCG TABLET PO SCH (06:45)
[2017-09-17] MEDS: CEFTRIAXONE 1 G VIAL IM SCH (08:22)
[2017-09-17] MEDS: MEMANTINE HCL 5 MG TABLET PO SCH ×2 (08:22→21:00)
[2017-09-17] MEDS: QUETIAPINE FUMARATE 25 MG TABLET PO SCH ×2 (08:22→21:59)
[2017-09-17] MEDS: OXCARBAZEPINE 150 MG TABLET PO SCH ×2 (08:22→17:00)
[2017-09-17] MEDS: Z GUARD REMEDY PASTE 57 GM TUBE TOP SCH ×2 (08:23→21:00)
[2017-09-17] MEDS: CHOLECALCIFEROL 1,000 UNIT TABLET PO SCH (08:23)
[2017-09-17 17:11] VITALS: BP 119/56
[2017-09-17] MEDS: ATORVASTATIN 10 MG TABLET PO SCH (21:00)
[2017-09-17] MEDS: MIRTAZAPINE 15 MG TABLET PO SCH (21:00)
[2017-09-18] MEDS: LEVOTHYROXINE SODIUM 75 MCG TABLET PO SCH (07:00)
[2017-09-18 07:30] VITALS: BP 111/57
[2017-09-18 07:50] LABS: BASOPHILS % (AUTO) 0.2 % (0.0-2.0); EOSINOPHILS # (AUTO) 0.1 K/uL (0.0-0.7); EOSINOPHILS % (AUTO) 1.6 % (0.0-7.0); HEMATOCRIT 37.7 % (31.2-41.9); HEMOGLOBIN 12.6 g/dL (10.9-14.3); LYMPHOCYTES # (AUTO) 1.5 K/uL (20.0-40.0); LYMPHOCYTES % (AUTO) 24.2 % (20.5-51.5); MEAN CORPUSCULAR HEMOGLOBIN 31.2 uug (24.7-32.8); MEAN CORPUSCULAR HGB CONC 34 g/dL (32.3-35.6); MEAN CORPUSCULAR VOLUME 93.2 fL (75.5-95.3); MONOCYTES # (AUTO) 0.6 K/uL (2.0-10.0); MONOCYTES % (AUTO) 9.9 % (0.0-11.0); NEUTROPHILS % (AUTO) 64.1 % (38.5-71.5); PLATELET COUNT (AUTO) 135 K/uL (179-408); RED BLOOD CELL COUNT(AUTO) 4.04 MIL/uL (3.63-4.92); WHITE BLOOD COUNT (AUTO) 6.2 K/uL (3.8-11.8)
[2017-09-18] MEDS: CHOLECALCIFEROL 1,000 UNIT TABLET PO SCH (08:02)
[2017-09-18] MEDS: QUETIAPINE FUMARATE 25 MG TABLET PO SCH ×2 (08:02→20:53)
[2017-09-18] MEDS: CEFTRIAXONE 1 G VIAL IM SCH (08:02)
[2017-09-18] MEDS: MEMANTINE HCL 5 MG TABLET PO SCH ×2 (08:02→20:53)
[2017-09-18] MEDS: OXCARBAZEPINE 150 MG TABLET PO SCH ×2 (08:02→16:07)
[2017-09-18] MEDS: FUROSEMIDE 20 MG TABLET PO SCH (08:02)
[2017-09-18] MEDS: Z GUARD REMEDY PASTE 57 GM TUBE TOP SCH ×2 (08:03→20:54)
[2017-09-18 08:08] LABS: ALANINE AMINOTRANSFERASE 13 U/L (14-59); ALKALINE PHOSPHATASE 118 U/L (50-136); ASPARTATE AMINOTRANSFERASE 20 U/L (15-37); BILIRUBIN,TOTAL 0.4 mg/dL (0.2-1.0); CARBON DIOXIDE 28 mmol/L (21-32); CHLORIDE 104 mmol/L (98-107); CREATININE 0.7 mg/dL (0.6-1.3); GLUCOSE 95 mg/dL (74-106); MAGNESIUM 2.1 mg/dL (1.8-2.4); PHOSPHOROUS 3.9 mg/dL (2.5-4.9); POTASSIUM 3.9 mmol/L (3.5-5.1); TOTAL PROTEIN, SERUM 8.1 g/dL (6.4-8.2); UREA NITROGEN, BLOOD 18 mg/dL (7-18)
[2017-09-18] MEDS ORDERED: OLANZAPINE 10 MG VIAL IM PRN (10:30)
[2017-09-18] MEDS: ATORVASTATIN 10 MG TABLET PO SCH (20:53)
[2017-09-18] MEDS: MIRTAZAPINE 15 MG TABLET PO SCH (20:53)
[2017-09-19] MEDS: LEVOTHYROXINE SODIUM 75 MCG TABLET PO SCH (06:47)
[2017-09-19 07:30] VITALS: BP 159/60
[2017-09-19] MEDS: CHOLECALCIFEROL 1,000 UNIT TABLET PO SCH (09:00)
[2017-09-19] MEDS: OXCARBAZEPINE 150 MG TABLET PO SCH ×2 (09:00→17:00)
[2017-09-19] MEDS: QUETIAPINE FUMARATE 25 MG TABLET PO SCH ×2 (10:40→20:56)
[2017-09-19] MEDS: MEMANTINE HCL 5 MG TABLET PO SCH ×2 (10:40→20:56)
[2017-09-19] MEDS: Z GUARD REMEDY PASTE 57 GM TUBE TOP SCH ×2 (10:41→20:57)
[2017-09-19] MEDS: CEFTRIAXONE 1 G VIAL IM SCH (10:55)
[2017-09-19 15:51] VITALS: BP 100/50
[2017-09-19 20:33] VITALS: BP 115/54
[2017-09-19] MEDS: MIRTAZAPINE 15 MG TABLET PO SCH (20:56)
[2017-09-19] MEDS: ATORVASTATIN 10 MG TABLET PO SCH (20:56)
[2017-09-20] MEDS: CEFTRIAXONE 1 G VIAL IM SCH (09:20)
[2017-09-20] MEDS: MEMANTINE HCL 5 MG TABLET PO SCH ×2 (09:21→21:00)
[2017-09-20] MEDS: LEVOTHYROXINE SODIUM 75 MCG TABLET PO SCH (09:21)
[2017-09-20] MEDS: OXCARBAZEPINE 150 MG TABLET PO SCH ×3 (09:21→17:09)
[2017-09-20] MEDS: CHOLECALCIFEROL 1,000 UNIT TABLET PO SCH (09:21)
[2017-09-20] MEDS: Z GUARD REMEDY PASTE 57 GM TUBE TOP SCH ×2 (09:21→21:00)
[2017-09-20] MEDS: QUETIAPINE FUMARATE 25 MG TABLET PO SCH (09:21)
[2017-09-20] MEDS: FUROSEMIDE 20 MG TABLET PO SCH (09:22)
[2017-09-20 15:00] VITALS: BP 100/45
[2017-09-20] MEDS ORDERED: QUETIAPINE FUMARATE 25 MG TABLET PO SCH (21:00)
[2017-09-20] MEDS: ATORVASTATIN 10 MG TABLET PO SCH (21:00)
[2017-09-20] MEDS: MIRTAZAPINE 15 MG TABLET PO SCH (21:12)
[2017-09-20 21:47] VITALS: BP 94/50
[2017-09-20 23:12] VITALS: BP 115/58
[2017-09-21] MEDS: LEVOTHYROXINE SODIUM 75 MCG TABLET PO SCH (07:00)
[2017-09-21] MEDS: MEMANTINE HCL 5 MG TABLET PO SCH ×2 (08:44→21:08)
[2017-09-21] MEDS: QUETIAPINE FUMARATE 25 MG TABLET PO SCH ×3 (08:44→21:08)
[2017-09-21] MEDS: CHOLECALCIFEROL 1,000 UNIT TABLET PO SCH (08:44)
[2017-09-21] MEDS: OXCARBAZEPINE 150 MG TABLET PO SCH (08:45)
[2017-09-21] MEDS: Z GUARD REMEDY PASTE 57 GM TUBE TOP SCH ×2 (09:13→21:08)
[2017-09-21] MEDS: CEFTRIAXONE 1 G VIAL IM SCH (10:27)
[2017-09-21] MEDS ORDERED: OXCARBAZEPINE 150 MG TABLET PO SCH (13:00)
[2017-09-21] MEDS: OXCARBAZEPINE 300 MG TABLET PO SCH ×2 (13:00→17:00)
[2017-09-21 15:00] VITALS: BP 106/63
[2017-09-21] MEDS ORDERED: OLANZAPINE 10 MG VIAL IM PRN (21:00)
[2017-09-21] MEDS: ATORVASTATIN 10 MG TABLET PO SCH (21:08)
[2017-09-21] MEDS: MIRTAZAPINE 15 MG TABLET PO SCH (21:08)
[2017-09-22] MEDS: LEVOTHYROXINE SODIUM 75 MCG TABLET PO SCH (06:39)
[2017-09-22] MEDS: OXCARBAZEPINE 300 MG TABLET PO SCH ×3 (09:04→17:09)
[2017-09-22] MEDS: MEMANTINE HCL 5 MG TABLET PO SCH ×2 (09:04→20:05)
[2017-09-22] MEDS: CHOLECALCIFEROL 1,000 UNIT TABLET PO SCH (09:04)
[2017-09-22] MEDS: Z GUARD REMEDY PASTE 57 GM TUBE TOP SCH ×2 (09:05→20:42)
[2017-09-22] MEDS: FUROSEMIDE 20 MG TABLET PO SCH (09:05)
[2017-09-22] MEDS: QUETIAPINE FUMARATE 25 MG TABLET PO SCH ×3 (09:05→20:05)
[2017-09-22 16:28] VITALS: BP 94/49
[2017-09-22 20:00] VITALS: BP 109/63
[2017-09-22] MEDS: ATORVASTATIN 10 MG TABLET PO SCH (20:05)
[2017-09-22] MEDS: MIRTAZAPINE 15 MG TABLET PO SCH (20:05)
[2017-09-23] MEDS: LEVOTHYROXINE SODIUM 75 MCG TABLET PO SCH (06:31)
[2017-09-23 07:30] VITALS: BP 130/58
[2017-09-23] MEDS: MEMANTINE HCL 5 MG TABLET PO SCH ×3 (09:00→20:11)
[2017-09-23] MEDS: QUETIAPINE FUMARATE 25 MG TABLET PO SCH ×3 (09:00→20:12)
[2017-09-23] MEDS: CHOLECALCIFEROL 1,000 UNIT TABLET PO SCH ×2 (09:00→13:59)
[2017-09-23] MEDS: OXCARBAZEPINE 300 MG TABLET PO SCH ×3 (09:00→16:53)
[2017-09-23] MEDS: Z GUARD REMEDY PASTE 57 GM TUBE TOP SCH ×2 (09:38→20:13)
[2017-09-23] MEDS: OLANZAPINE 10 MG VIAL IM PRN (09:48)
[2017-09-23 15:11] VITALS: BP 104/54
[2017-09-23 20:00] VITALS: BP 106/61
[2017-09-23] MEDS: ATORVASTATIN 10 MG TABLET PO SCH (20:10)
[2017-09-23] MEDS: MIRTAZAPINE 15 MG TABLET PO SCH (20:11)
[2017-09-24] MEDS: LEVOTHYROXINE SODIUM 75 MCG TABLET PO SCH (06:23)
[2017-09-24 07:30] VITALS: BP 112/58
[2017-09-24] MEDS: FUROSEMIDE 20 MG TABLET PO SCH (09:00)
[2017-09-24] MEDS: QUETIAPINE FUMARATE 25 MG TABLET PO SCH ×3 (09:00→20:31)
[2017-09-24] MEDS: MEMANTINE HCL 5 MG TABLET PO SCH ×2 (09:00→20:31)
[2017-09-24] MEDS: OXCARBAZEPINE 300 MG TABLET PO SCH ×3 (09:00→16:28)
[2017-09-24] MEDS: CHOLECALCIFEROL 1,000 UNIT TABLET PO SCH (09:00)
[2017-09-24] MEDS: Z GUARD REMEDY PASTE 57 GM TUBE TOP SCH ×2 (09:25→20:42)
[2017-09-24] MEDS: OLANZAPINE 10 MG VIAL IM PRN (09:32)
[2017-09-24 16:22] VITALS: BP 107/49
[2017-09-24] MEDS: MIRTAZAPINE 15 MG TABLET PO SCH (20:31)
[2017-09-24] MEDS: ATORVASTATIN 10 MG TABLET PO SCH (20:31)
[2017-09-25] MEDS: LEVOTHYROXINE SODIUM 75 MCG TABLET PO SCH (07:00)
[2017-09-25] MEDS: OXCARBAZEPINE 300 MG TABLET PO SCH ×3 (09:45→17:25)
[2017-09-25] MEDS: MEMANTINE HCL 5 MG TABLET PO SCH ×2 (09:45→21:00)
[2017-09-25] MEDS: CHOLECALCIFEROL 1,000 UNIT TABLET PO SCH (09:46)
[2017-09-25] MEDS: QUETIAPINE FUMARATE 25 MG TABLET PO SCH ×3 (09:46→20:01)
[2017-09-25] MEDS: Z GUARD REMEDY PASTE 57 GM TUBE TOP SCH ×2 (09:52→21:23)
[2017-09-25] MEDS ORDERED: MAGNESIUM HYDROXIDE 30 ML LIQUID UDC PO ONE (10:30)
[2017-09-25] MEDS ORDERED: BISACODYL 10 MG SUPP.RECT RC ONE (10:30)
[2017-09-25] MEDS ORDERED: FLEET ENEMA 133 ML BOTTLE RC ONE ×2 (17:45→18:00)
[2017-09-25] MEDS: MIRTAZAPINE 15 MG TABLET PO SCH (20:01)
[2017-09-25] MEDS: ATORVASTATIN 10 MG TABLET PO SCH (21:00)
[2017-09-25] MEDS: DOCUSATE SODIUM 100 MG CAPSULE PO SCH (21:00)
[2017-09-26] MEDS: LEVOTHYROXINE SODIUM 75 MCG TABLET PO SCH (06:40)
[2017-09-26 07:30] VITALS: BP 114/53
[2017-09-26] MEDS: DOCUSATE SODIUM 100 MG CAPSULE PO SCH ×2 (09:00→20:30)
[2017-09-26] MEDS: CHOLECALCIFEROL 1,000 UNIT TABLET PO SCH (09:00)
[2017-09-26] MEDS: OXCARBAZEPINE 300 MG TABLET PO SCH ×3 (09:00→17:58)
[2017-09-26] MEDS: QUETIAPINE FUMARATE 25 MG TABLET PO SCH ×3 (09:00→20:21)
[2017-09-26] MEDS: FUROSEMIDE 20 MG TABLET PO SCH (09:00)
[2017-09-26] MEDS: MEMANTINE HCL 5 MG TABLET PO SCH ×2 (09:00→20:21)
[2017-09-26] MEDS: Z GUARD REMEDY PASTE 57 GM TUBE TOP SCH ×2 (09:26→20:30)
[2017-09-26] MEDS: OLANZAPINE 10 MG VIAL IM PRN (09:26)
[2017-09-26] MEDS ORDERED: BISACODYL 10 MG SUPP.RECT RC ONE (10:45)
[2017-09-26] MEDS ORDERED: LACTULOSE 20 G/30 ML LIQUID UDC PO PRN (10:45)
[2017-09-26] MEDS ORDERED: LACTULOSE 20 G/30 ML LIQUID UDC PO ONE (10:45)
[2017-09-26] MEDS ORDERED: BISACODYL 10 MG SUPP.RECT RC PRN (10:45)
[2017-09-26 15:00] VITALS: BP 114/53
[2017-09-26] MEDS ORDERED: GLYCERIN ADULT RECTAL SUPP EACH RC PRN (16:00)
[2017-09-26] MEDS ORDERED: MAGNESIUM CITRATE 296 ML BOTTLE PO ONE (20:00)
[2017-09-26 20:17] VITALS: BP 112/59
[2017-09-26] MEDS: ATORVASTATIN 10 MG TABLET PO SCH (20:21)
[2017-09-26] MEDS: MIRTAZAPINE 15 MG TABLET PO SCH (20:22)
[2017-09-27] MEDS: LEVOTHYROXINE SODIUM 75 MCG TABLET PO SCH (06:33)
[2017-09-27 07:30] VITALS: BP 146/64
[2017-09-27 08:07] LABS: ALANINE AMINOTRANSFERASE 17 U/L (14-59); ALKALINE PHOSPHATASE 113 U/L (50-136); ASPARTATE AMINOTRANSFERASE 20 U/L (15-37); BILIRUBIN,TOTAL 0.3 mg/dL (0.2-1.0); CARBON DIOXIDE 30 mmol/L (21-32); CHLORIDE 103 mmol/L (98-107); CREATININE 0.7 mg/dL (0.6-1.3); GLUCOSE 86 mg/dL (74-106); PHOSPHOROUS 3.6 mg/dL (2.5-4.9); TOTAL PROTEIN, SERUM 7.1 g/dL (6.4-8.2); UREA NITROGEN, BLOOD 24 mg/dL (7-18)
[2017-09-27] MEDS: OXCARBAZEPINE 300 MG TABLET PO SCH ×2 (08:38→13:14)
[2017-09-27] MEDS: CHOLECALCIFEROL 1,000 UNIT TABLET PO SCH (08:38)
[2017-09-27] MEDS: QUETIAPINE FUMARATE 25 MG TABLET PO SCH ×2 (08:38→13:14)
[2017-09-27] MEDS: DOCUSATE SODIUM 100 MG CAPSULE PO SCH (08:38)
[2017-09-27 08:39] LABS: BASOPHILS % (AUTO) 0.1 % (0.0-2.0); EOSINOPHILS # (AUTO) 0.1 K/uL (0.0-0.7); EOSINOPHILS % (AUTO) 1.5 % (0.0-7.0); HEMOGLOBIN 11.2 g/dL (10.9-14.3); LYMPHOCYTES # (AUTO) 1.3 K/uL (20.0-40.0); LYMPHOCYTES % (AUTO) 18.1 % (20.5-51.5); MEAN CORPUSCULAR HEMOGLOBIN 30.9 uug (24.7-32.8); MEAN CORPUSCULAR HGB CONC 33 g/dL (32.3-35.6); MEAN CORPUSCULAR VOLUME 93.7 fL (75.5-95.3); MONOCYTES # (AUTO) 0.6 K/uL (2.0-10.0); MONOCYTES % (AUTO) 8.6 % (0.0-11.0); NEUTROPHILS # (AUTO) 5.3 K/uL (1.8-8.9); NEUTROPHILS % (AUTO) 71.7 % (38.5-71.5); PLATELET COUNT (AUTO) 135 K/uL (179-408); RED BLOOD CELL COUNT(AUTO) 3.62 MIL/uL (3.63-4.92); WHITE BLOOD COUNT (AUTO) 7.4 K/uL (3.8-11.8)
[2017-09-27] MEDS: MEMANTINE HCL 5 MG TABLET PO SCH (08:48)
[2017-09-27] MEDS: Z GUARD REMEDY PASTE 57 GM TUBE TOP SCH (08:48)
== END 2017-09-27 13:30 | DRG 885 ==
LOC: ER 14:57 → GPSOV 20:34 → GPS 09-12 18:43
PROVIDERS: ADMIT Psychiatry & Neurology Psychiatry; ATTEND Internal Medicine
DX: F23 Brief psychotic disorder (principal); F02.81 Dementia in other diseases classified elsewhere, unspecified severity, with behavioral disturbance; I50.33 Acute on chronic diastolic (congestive) heart failure; G93.40 Encephalopathy, unspecified; D68.59 Other primary thrombophilia; N39.0 Urinary tract infection, site not specified; D69.6 Thrombocytopenia, unspecified; G30.9 Alzheimer's disease, unspecified; D64.9 Anemia, unspecified; Z86.718 Personal history of other venous thrombosis and embolism; Z87.891 Personal history of nicotine dependence; Z66 Do not resuscitate; Z88.0 Allergy status to penicillin; Z88.1 Allergy status to other antibiotic agents; Z91.010 Allergy to peanuts; K21.9 Gastro-esophageal reflux disease without esophagitis; K44.9 Diaphragmatic hernia without obstruction or gangrene; B96.20 Unspecified Escherichia coli [E. coli] as the cause of diseases classified elsewhere; Z87.440 Personal history of urinary (tract) infections; M81.0 Age-related osteoporosis without current pathological fracture; M62.81 Muscle weakness (generalized); Z74.09 Other reduced mobility; K59.00 Constipation, unspecified; I70.0 Atherosclerosis of aorta; F41.9 Anxiety disorder, unspecified; F32.9 Major depressive disorder, single episode, unspecified; E78.5 Hyperlipidemia, unspecified; E03.9 Hypothyroidism, unspecified; E87.6 Hypokalemia; Z91.19 Patient's noncompliance with other medical treatment and regimen; Z91.14 Patient's other noncompliance with medication regimen; Z86.711 Personal history of pulmonary embolism
CPT/HCPCS: 36415; 71045; 74018; 80307; 83735; 84100; 85025; 87077; 87086; 93005; 97110; 97116; 97530; A4663; C1758; G0480; G0480-TC; J0696; J1630; J2060; J2358